=== PATIENT | female | born 1965 | race Asian ===

== ENCOUNTER 2017-09-30 07:35 | Day surgery (SDC) | payer OTHER ==
[2017-09-29 09:45] VITALS: BMI 27.3
[2017-09-30] MEDS ORDERED: PROPOFOL 20 ML ONE ×2 (09:36)
[2017-09-30] MEDS ORDERED: LIDOCAINE HCL/PF 2% SDV 5ML VIAL ONE (09:37)
[2017-09-30 10:36] VITALS: TEMP 97.8
[2017-09-30 12:20] VITALS: BP 109/86; PULSE 70
--- NOTE | 2017-10-03 17:32 | PATH ---
Surgical Pathology Report Patient Name: VEENA WOO [facility]. Rec. #: [id number] /Age/Gender: 1965 (Age: 52) / F Account: [id number] Location: U-ENDOSCOPY Taken: 09/30/2017 Received: 09/30/2017 Reported: 10/03/2017 Physicians: Sena Christianson M.D. Specimen(s) Received A: BX 2ND PORTION DUODENAL + DUODENAL BULB B: BX ANTRUM C: BX GE JUNCTION D: BX RT. COLON POLYP Clinical History Colon screening, GERD Postop diagnosis: Hiatal hernia, colon polyp Final Diagnosis A. DUODENUM, SECOND PORTION AND DUODENAL BULB, BIOPSY: DUODENAL MUCOSA WITH MILD CHRONIC DUODENITIS AND ALEJANDRA'S GLAND HYPERPLASIA. B. STOMACH, ANTRUM, BIOPSY: GASTRIC ANTRAL MUCOSA WITH FOCAL MILD CHRONIC ACTIVE GASTRITIS. IMMUNOHISTOCHEMICAL STAIN FOR H. PYLORI IS NEGATIVE. C. GASTROESOPHAGEAL (EG) JUNCTION, BIOPSY: SQUAMOUS MUCOSA WITH MILD VASCULAR CONGESTION AND CHANGES OF MILD REFLUX TYPE ESOPHAGITIS. NO COLUMNAR MUCOSA, INTESTINAL METAPLASIA, OR DYSPLASIA IDENTIFIED. D. COLON, RECTUM, POLYP, BIOPSY: TUBULAR ADENOMA. Electronically Signed Rosana Veloz M.D. Gross Description A. Received in formalin, labeled "biopsy second portion of duodenum and duodenal bulb" are 4 mcclellan, irregular portions of soft tissue ranging from 0.3-0.5 cm. in greatest dimension. The specimens are submitted in toto in one cassette. B. Received in formalin, labeled "biopsy antrum" are 4 mcclellan, irregular portions of soft tissue ranging from 0.2-0.4 cm. in greatest dimension. The specimens are submitted in toto in one cassette. C. Received in formalin, labeled "biopsy EG junction" are 3 mcclellan, irregular portions of soft tissue ranging from 0.2-0.3 cm. in greatest dimension. The specimens are submitted in toto in one cassette. D. Received in formalin, labeled "biopsy right colon polyp" is a mcclellan, irregular portion of soft tissue measuring 0.5 cm. in greatest dimension. The specimen is submitted in toto in one cassette. /09/30/2017 saudi09/30/2017
== END 2017-09-30 11:45 | disposition home or self-care (01) ==
LOC: JASU-ENDO 07:35
PROVIDERS: ATTEND Internal Medicine Gastroenterology
PROC: 0DB98ZX Excision of Duodenum, Via Natural or Artificial Opening Endoscopic, Diagnostic (ICD-10-PCS; 2017-09-30)
PROC: 0DB68ZX Excision of Stomach, Via Natural or Artificial Opening Endoscopic, Diagnostic (ICD-10-PCS; 2017-09-30)
PROC: 0DB38ZX Excision of Lower Esophagus, Via Natural or Artificial Opening Endoscopic, Diagnostic (ICD-10-PCS; 2017-09-30)
PROC: 0DBK8ZX Excision of Ascending Colon, Via Natural or Artificial Opening Endoscopic, Diagnostic (ICD-10-PCS; principal; 2017-09-30 10:00)
DX: Z12.11 Encounter for screening for malignant neoplasm of colon (principal); D12.2 Benign neoplasm of ascending colon; K64.8 Other hemorrhoids; K21.9 Gastro-esophageal reflux disease without esophagitis; K44.9 Diaphragmatic hernia without obstruction or gangrene
CPT/HCPCS: 88305-TC; 88342-TC